=== PATIENT | female | born 1955 | race Caucasian/White ===

== ENCOUNTER 2016-04-16 10:33 | Day surgery (SDC) | payer BC ==
--- NOTE | ~2016-04-16 | EGD ---
EGD REPORT [facility] [address] [place] [address] NAME: BRENDA BECKHAM : [birth year] STATUS : [facility] [place] PAT#: [id number] AGE: 60 ADM/REG DATE : 04/16/16 MR#: [id number] REPORT SERV DATE: 04/16/16 DICTATED BY: KINDRA WAHL DATE: 04/16/16 REPORT STATUS : Draft TRANSCRIBED BY: [facility] DATE: 04/16/16 [facility] Patient Name: Brenda Beckham Date of : 1955 Attending MD: KINDRA WAHL MD Procedure Date No Time: 04/16/2016 Procedure: Colonoscopy Indications: Screening for colorectal malignant neoplasm (last colonoscopy > 10 years ago), Last colonoscopy: July 2002 Referring MD: SRAVANTHI STEVENS MD, CARMEN KOCH III, MD Medicines: Propofol per Anesthesia Complications: No immediate complications. Estimated blood loss: None. Procedure: Pre-Anesthesia Assessment: - After reviewing the risks and benefits, the patient was deemed in satisfactory condition to undergo the procedure. - Prior to the procedure, a History and Physical was performed, and patient medications and allergies were reviewed. The patient's tolerance of previous anesthesia was also reviewed. The risks and benefits of the procedure and the sedation options and risks were discussed with the patient. All questions were answered, and informed consent was obtained. Prior Anticoagulants: The patient has taken no previous anticoagulant or antiplatelet agents. ASA Grade Assessment: II - A patient with mild systemic disease. After reviewing the risks and benefits, the patient was deemed in satisfactory condition to undergo the procedure. After I obtained informed consent, the scope was passed under direct vision. Throughout the procedure, the patient's blood pressure, pulse, and oxygen saturations were monitored continuously. The CF [id number] was introduced through the anus and advanced to the cecum, identified by appendiceal orifice and ileocecal valve. The colonoscopy was performed without difficulty. The ileocecal valve and appendiceal orifice were photographed. The patient tolerated the procedure well. The quality of the bowel preparation was excellent. The bowel preparation used was split dose SUPREP. Scope withdrawal time was greater than 6 minutes. Findings: The perianal exam was abnormal. Findings include internal hemorrhoids that do not return to the anal canal, thus continuously prolapsed (Grade IV). EGD REPORT [address] [address] NAME: BRENDA BECKHAM : [birth year] STATUS : [facility] [place] PAT#: [id number] AGE: 60 ADM/REG DATE : 04/16/16 MR#: [id number] REPORT SERV DATE: 04/16/16 DICTATED BY: KINDRA WAHL DATE: 04/16/16 REPORT STATUS : Draft TRANSCRIBED BY: [employer] DATE: 04/16/16 A few small-mouthed diverticula were found in the sigmoid colon. Diffuse melanosis was found in the ascending colon. Biopsies were taken with a cold forceps for histology. Estimated blood loss: none. A sessile polyp was found in the rectum. The polyp was 8 mm in size. The polyp was removed with a hot snare. Resection and retrieval were complete. Estimated blood loss: none. The exam was otherwise without abnormality. Impression: - Internal hemorrhoids that do not return to the anal canal, thus continuously prolapsed (Grade IV) found on perianal exam. - Mild diverticulosis in the sigmoid colon. - Melanosis in the colon. Biopsied. - One 8 mm polyp in the rectum. Resected and retrieved. - The examination was otherwise normal. Recommendation: - Discharge patient to home (ambulatory). - Return to previous diet. - Continue present medications. - Await pathology results. - Will arrange surgical consult for hemorrhroids. - Repeat colonoscopy in 5 years for surveillance. - Patient has a contact number available for emergencies. The signs and symptoms of potential delayed complications were discussed with the patient. Return to normal activities tomorrow. Written discharge instructions were provided to the patient. Procedure Code(s): --- Professional --- 81484, Colonoscopy, flexible, proximal to splenic flexure; with removal of tumor(s), polyp(s), or other lesion(s) by snare technique 79077, 59, Colonoscopy, flexible, proximal to splenic flexure; with biopsy, single or multiple Diagnosis Code(s): --- Professional --- K64.3, Fourth degree hemorrhoids K57.30, Diverticulosis of large intestine without perforation or abscess without bleeding K63.89, Other specified diseases of intestine K62.1, Rectal polyp Z12.11, Encounter for screening for malignant neoplasm of colon CPT copyright 2013 [employer]. All rights reserved. EGD REPORT [facility] [address] [place], [place] [address] [facility] [place] [address] NAME: BRENDA BECKHAM : [birth year] STATUS : [facility] [place] PAT#: [id number] AGE: 60 ADM/REG DATE : 04/16/16 MR#: [id number] REPORT SERV DATE: 04/16/16 DICTATED BY: KINDRA WAHL DATE: 04/16/16 REPORT STATUS : Draft TRANSCRIBED BY: [employer] DATE: 04/16/16 The codes documented in this report are preliminary and upon industrial engineering intern review may be revised to meet current compliance requirements. KINDRA WAHL MD 04/16/2016 12:55 PM This report has been signed electronically. Number of Addenda: 0 Note Initiated On: 04/16/2016 12:16 PM Scope Withdrawal Time 0 hours 6 minutes [address] [place] [address] [place] [address]
[~2016-04-16 10:33] MED LIST: ASAB PO; CALGLUCTAB PO; HYDROCHLOROT25 MG PO; KLOR-CON M2020 MEQ PO; L20 PO; MULTIPLE VIT PO; VITAMIN C100 MG PO; VITAMIN C1000 MG PO; VITAMIN D1000 UNI1 PO; VITAMIN D2000 UNIT PO; [UNRECOGNIZED DRUG - OTHER]
[2016-06-29] MEDS ORDERED: PERI-COLACE1 TAB PO (06:57)
[2016-06-29] MEDS ORDERED: METAMUCIL PO (06:58)
[2016-08-23] MEDS ORDERED: VITC500 PO (10:02)
[2016-08-23] MEDS ORDERED: BIO IDENTICAL HORMON SL (10:04)
== END 2016-04-16 23:59 | disposition home or self-care (01) ==
LOC: DMU 10:33
PROVIDERS: Internal Medicine Gastroenterology
PROC: 0DBP8ZZ Excision of Rectum, Via Natural or Artificial Opening Endoscopic (ICD-10-PCS; principal; 2016-04-16 12:00)
PROC: 0DBK8ZX Excision of Ascending Colon, Via Natural or Artificial Opening Endoscopic, Diagnostic (ICD-10-PCS; 2016-04-16 12:00)
DX: Z12.11 Encounter for screening for malignant neoplasm of colon (principal); K51.40 Inflammatory polyps of colon without complications; K63.89 Other specified diseases of intestine; K64.3 Fourth degree hemorrhoids; K57.30 Diverticulosis of large intestine without perforation or abscess without bleeding; I10 Essential (primary) hypertension; M10.9 Gout, unspecified; Z88.0 Allergy status to penicillin; Z88.2 Allergy status to sulfonamides; Z79.82 Long term (current) use of aspirin; Z79.899 Other long term (current) drug therapy; Z90.49 Acquired absence of other specified parts of digestive tract; Z90.722 Acquired absence of ovaries, bilateral; Z98.890 Other specified postprocedural states; Z90.711 Acquired absence of uterus with remaining cervical stump
CPT/HCPCS: 88305